=== PATIENT | female | born 1995 | race Asian ===

== ENCOUNTER → 2020-01-29 | Outpatient (CLI) | payer OTHER ==
[~2020-01-29] MED LIST: LIDOCAINE 1% MDV 20ML VIAL As Ordered ONE
--- NOTE | 2020-03-11 09:03 | REP ---
ULTRASOUND-GUIDED RIGHT GROIN MASS BIOPSY: The procedure was performed under the direct supervision of Dr. Sierra. HISTORY: The patient has a history of a heterogeneously enhancing soft tissue mass measuring 2.2 cm in the right inguinal region seen on a previous CT scan from [facility] performed on 01/14/20. The risks and benefits of the procedure were explained to the patient and informed consent was obtained. PROCEDURE: The right groin mass was localized using ultrasound guidance. The skin was prepped and draped in a sterile fashion. 1% lidocaine was used as a local anesthetic. Using ultrasound guidance, a 17/18 gauge coaxial needle biopsy system was inserted and advanced into the mass. Eight core biopsy samples were obtained and sent to the lab. The patient tolerated the procedure well and there were no immediate complications. After the appropriate amount of monitored convalescence, the patient was discharged from the department. DIPTI
== END ==
LOC: M IRPRO 11:34 → M RAD 11:34
PROVIDERS: ATTEND Surgery
DX: D48.7 Neoplasm of uncertain behavior of other specified sites (principal); R19.09 Other intra-abdominal and pelvic swelling, mass and lump

== ENCOUNTER → 2020-06-04 | Outpatient (REF) | payer OTHER | LOC: M LAB REF 19:15 | PROVIDERS: ATTEND Physician Assistant Medical | DX: Z11.59 Encounter for screening for other viral diseases (principal) ==